=== PATIENT | male | born 1995 | race Caucasian/White ===

== ENCOUNTER 2023-11-06 12:27 | Emergency (ER) | payer OTHER, SELFPAY ==
[2023-11-06 12:33] VITALS: BP 120/80; PULSE 77; O2SAT 99
--- NOTE | 2023-11-06 12:33 | ED.ABDPAIN ---
HPI - Abdominal Pain <Hallie Cerrato PA-C - Last Filed: 11/06/23 15:01> General Chief Complaint: Abdominal Pain Stated Complaint: abd pain Time Seen by Provider: 11/06/23 12:33 History of Present Illness HPI narrative: 28-year-old male was brought down from upstairs where he was with his who is in the labor and delivery department expecting her 4th child today, for chief complaint abdominal pain. He states it is in the mid epigastric area and moves in wave-like motion and comes and goes. It actually began earlier this morning, he is endorsing diarrhea and has had about 10 episodes since yesterday described as clear liquid but with no foul odor no blood or mucus. Last bowel movement was around 430 this morning. He is denying any fever, chills body aches or joint pains, he has had no recent travel or contact with stream water. His and the rest of his 3 children (ages 4, 3, 1) do not have similar symptoms. He has no prior surgical history on the abdomen or any history of any GI issues such as ulcers or GERD. He states no vomiting no nausea per se but he ?burps a lot and it tastes like vomit. ? He still is passing gas but ?can not trust it as he thinks he might have a bowel movement. His last oral intake was 630am this morning which was a bagel only. He took Imodium and Tums at 4:30 a.m.. He is denying any back pain, any radiation of the pain through to the back, no history of any EtOH, no history of NSAID usage, no urinary symptoms. He states lying on his right side makes it feel a little bit better but it does not fully resolve. He is denying any chest pain, difficulty breathing, he has no family history of any GI issues or vascular disease. He is a nonsmoker. Lying on his left side makes it worse. All other systems reviewed and are negative. Review of Systems <Hallie Cerrato PA-C - Last Filed: 11/06/23 15:01> Review of Systems Narrative: All other systems reviewed and are negative. Patient History <Hallie Cerrato PA-C - Last Filed: 11/06/23 15:01> Social History Smoking Status: Never smoker Exam <Hallie Cerrato PA-C - Last Filed: 11/06/23 15:01> Initial Vital Signs Initial Vital Signs: Vital Signs Pulse Rate 77 11/06/23 12:33 Blood Pressure 120/80 11/06/23 12:33 Pulse Oximetry 99 11/06/23 12:33 Vital signs reviewed and are normal. Remained normal throughout his visit. Const Other: Alert and oriented x4, uncomfortable appearing. Nontoxic appearing, normal color, turgor, temperature. [facility] Mouth: oral mucosae normal, lip normal, tongue normal and oropharynx normal Neck Lymphatic: No lymphadenopathy Resp Other: Clear to auscultation throughout, normal expansion equal chest rise and fall. Cardio Other: Regular rate and rhythm. No tachycardia. GI Inspection: normal to inspection, no abdominal wall ecchymosis, non-distended, no incisions, no large pannus and no striae Palpation: soft, No no hepatosplenomegaly, No aortic enlargement, No pulsatile mass and tender (Epigastric point tenderness, right and left upper quadrant tender) Percussion: normal to percussion Auscultation: hypoactive bowel sounds Other: No guarding with compression of the abdomen, Devine's sign is equivocal. No CVA tenderness. <Chio Olea DO - Last Filed: 11/07/23 07:31> Initial Vital Signs Initial Vital Signs: Vital Signs Pulse Rate 77 11/06/23 12:33 Blood Pressure 120/80 11/06/23 12:33 Pulse Oximetry 99 11/06/23 12:33 Course <Hallie Cerrato PA-C - Last Filed: 11/06/23 15:01> Course Course Narrative: CMP CBC and lipase are normal. A CT scan is negative. He was given 1 mg of Dilaudid and overall his pain has improved significantly. No bowel movements as of 1:47 p.m. no new symptoms. Orders Ordered: Discontinued Medications Al Hydrox/Mg Hydrox/Simethicone 20 ml/ Lidocaine HCl 15 ml 0 ml PO NOW ONE Stop: 11/06/23 14:10 Last Admin: 11/06/23 14:28 Dose: 35 ml Documented By: JOSIAH Hydromorphone HCl (Hydromorphone 1 Mg Inj) 1 mg IV NOW ONE Stop: 11/06/23 13:08 Last Admin: 11/06/23 13:29 Dose: 1 mg Documented By: BOB Sodium Chloride (Normal Saline 0.9%) 1,000 mls @ 1,000 mls/hr IV BOLUS PRN PRN Reason: Fluid replacement Last Admin: 11/06/23 14:28 Dose: 1,000 mls/hr Documented By: JOSIAH Ondansetron HCl (Ondansetron 4 Mg Odt) 4 mg PO NOW PRN PRN Reason: Nausea And Vomiting Ondansetron HCl (Ondansetron 4 Mg/2 Ml Inj) 4 mg IV NOW PRN PRN Reason: Nausea And Vomiting Reevaluation(s) Reevaluation #1: Re-evaluated following his CT scan which was read as negative, he was treated with 1 mg Dilaudid and that has helped his pain significantly. He still lying on his right side position of comfort. He is yet to defecate. His respiratory panel is still pending. Unable to provide a urine sample at this point. Vital signs remained normal, no tachycardia, skin signs are also normal. We will bolus him with a L of normal saline. Reevaluation #2: Tolerated GI cocktail without issue. 1 L of normal saline infused. He is pain-free at this time just a little bit of ?indigestion?. Vital Signs Vital signs: Vital Signs - 8 hr 11/06/23 12:33 11/06/23 12:33 11/06/23 12:37 Temperature 97.8 F Pulse Rate 77 75 Respiratory Rate 18 Blood Pressure 120/80 120/80 Pulse Oximetry 99 99 Oxygen Delivery Method Room Air 11/06/23 13:42 11/06/23 14:00 11/06/23 14:30 Temperature Pulse Rate 85 95 H 81 Respiratory Rate Blood Pressure Pulse Oximetry 96 96 98 Oxygen Delivery Method <Chio Olea DO - Last Filed: 11/07/23 07:31> Orders Ordered: Discontinued Medications Al Hydrox/Mg Hydrox/Simethicone 20 ml/ Lidocaine HCl 15 ml 0 ml PO NOW ONE Stop: 11/06/23 14:10 Last Admin: 11/06/23 14:28 Dose: 35 ml Documented By: JOSIAH Hydromorphone HCl (Hydromorphone 1 Mg Inj) 1 mg IV NOW ONE Stop: 11/06/23 13:08 Last Admin: 11/06/23 13:29 Dose: 1 mg Documented By: BOB Sodium Chloride (Normal Saline 0.9%) 1,000 mls @ 1,000 mls/hr IV BOLUS PRN PRN Reason: Fluid replacement Last Admin: 11/06/23 14:28 Dose: 1,000 mls/hr Documented By: JOSIAH Ondansetron HCl (Ondansetron 4 Mg Odt) 4 mg PO NOW PRN PRN Reason: Nausea And Vomiting Ondansetron HCl (Ondansetron 4 Mg/2 Ml Inj) 4 mg IV NOW PRN PRN Reason: Nausea And Vomiting Vital Signs Vital signs: Vital Signs - 8 hr 11/06/23 12:33 11/06/23 12:33 11/06/23 12:37 Temperature 97.8 F Pulse Rate 77 75 Respiratory Rate 18 Blood Pressure 120/80 120/80 Pulse Oximetry 99 99 Oxygen Delivery Method Room Air 11/06/23 13:42 11/06/23 14:00 11/06/23 14:30 Temperature Pulse Rate 85 95 H 81 Respiratory Rate Blood Pressure Pulse Oximetry 96 96 98 Oxygen Delivery Method MDM - Abdominal Pain <Hallie Cerrato PA-C - Last Filed: 11/06/23 15:01> Medical Records Attestation: I reviewed the patient's medical records. Lab Data Lab results narrative: Normal CBC, CMP, lipase. Respiratory panel was positive for entero coronavirus. 11/06/23 12:39 11/06/23 12:39 Labs: Lab Results 11/06/23 11/06/23 Range/Units 12:36 12:39 WBC 7.9 (4.5-11.0) X10^3/uL RBC 5.06 (4.5-5.9) X10^6/uL Hgb 15.0 (13.5-17.5) g/dL Hct 46.0 (41-53) % MCV 90.9 (80-100) fL MCH 29.7 (26-34) PG MCHC 32.6 (30-36) % RDW 13.1 (11.6-14.8) % Plt Count 316 (150-400) X10^3/uL Neut % (Auto) 62.1 (50-75) % Lymph % (Auto) 26.0 (25-40) % [place] % (Auto) 10.1 (3-14) % Eos % (Auto) 1.1 L (2-4) % Baso % (Auto) 0.7 (0-2) % Neut # (Auto) 4900 (2828-6228) /uL Lymph # (Auto) 2100 (9143-1790) /uL [place] # (Auto) 800 (0-900) /uL Eos # (Auto) 100 (0-450) /uL Baso # (Auto) 100 (0-100) /uL Sodium 142 (137-145) mmol/L Potassium 4.2 (3.4-5.1) mmol/L Chloride 106 (98-107) mmol/L Carbon Dioxide 28 (22-32) mmol/L BUN 15 (9-20) mg/dL Creatinine 1.01 (0.66-1.25) mg/dL Estimated GFR > 60 (>60) mL/min BUN/Creatinine Ratio 14.9 (6-22) Glucose 89 (70-100) mg/dL Calcium 9.4 (8.4-10.2) mg/dL Total Bilirubin 0.3 (0.2-1.3) mg/dL AST 33 (17-59) IU/L ALT 32 (<50) IU/L Alkaline Phosphatase 65 (38-126) U/L Total Protein 7.5 (6.3-8.2) g/dL Albumin 4.6 (3.5-5.0) g/dL Globulin 2.9 (1.7-4.1) g/dL Albumin/Globulin Ratio 1.6 (1.0-2.8) Lipase 49 (23-300) U/L Chlamy pneumoniae PCR Not detected (Not Detect) Adenovirus (PCR) Not detected (Not Detect) B.parapertussis DNA PCR Not detected (Not Detecte) Coronavirus OC43 (PCR) Not detected (Not Detect) Coronavirus HKU1 (PCR) Not detected (Not Detect) Coronavirus 229E (PCR) Not detected (Not Detect) SARS-CoV-2 (PCR) Not detected (Not Detecte) Coronavirus NL63 (PCR) Not detected (Not Detect) Human Metapneumovir PCR Not detected (Not Detect) Influenza Type A (PCR) Not detected (Not Detect) Influenza Type B (PCR) Not detected (Not Detect) M. pneumoniae (PCR) Not detected (Not Detect) Parainfluenza 1 (PCR) Not detected (Not Detect) Parainfluenza 2 (PCR) Not detected (Not Detect) Parainfluenza 3 (PCR) Not detected (Not Detect) Parainfluenza 4 (PCR) Not detected (Not Detect) RSV (PCR) Not detected (Not Detect) Entero/Rhino (PCR) Detected H (Not Detect) Imaging Data CT scan - abdomen/pelvis: My Impression: Deferred to Radiologist interpretation. Radiologist's Impression: [address] [address] [address] Scan Report Signed Patient: Mike Dang MR#: [id number] : 1995 Acct:[id number] Age/Sex: 28 / M Date of Service: 11/06/23 Loc: ED Accession Number: [id number] Procedure: CT abdomen pelvis w con Ordering Provider: Hallie Cerrato P.A-C PROCEDURE: CT ABDOMEN PELVIS W CON INDICATIONS: Upper abd pain, epigastric with diarrhea, afebrile TECHNIQUE: After the administration of intravenous contrast, axial sections acquired from the lung bases to the pubic symphysis. Coronal and sagittal reformats were performed. For radiation dose reduction, the following was used: automated exposure control, adjustment of mA and/or kV according to patient size. COMPARISON: None. FINDINGS: Image quality: Diagnostic. Lower Chest: No significant findings. ABDOMEN: Liver: No solid mass. Gallbladder: No radiopaque gallstones or wall thickening. Biliary ducts: No biliary dilation. Pancreas: No ductal dilation. Spleen: Size is within normal limits. Adrenal Glands: No adrenal nodules. Kidneys and Ureters: No hydronephrosis. No solid mass. No complex renal cystic lesion which requires follow up. Stomach and Bowel: Normal colonic caliber, without significant wall thickening. Peritoneum: No abnormal intraperitoneal fluid. No free air. Ventral Wall: No significant ventral hernia. Abdominal Nodes: No retroperitoneal or mesenteric adenopathy by size criteria. Vessels: Aorta and inferior vena cava are normal in size. PELVIS: Pelvic Organs: Unremarkable. Bladder: No bladder wall thickening, accounting for underdistention. Pelvic Nodes: No enlarged lymph nodes. Miscellaneous: No inguinal hernias are seen. Bones: No aggressive osseous abnormality. IMPRESSION: Normal for age, source of current symptoms is not seen. A normal or abnormal appendix could not be located. No secondary CT evidence of acute appendicitis is found. Dictated by: Ravi Stephens M.D. on 11/06/2023 at 13:23 Approved by: Ravi Stephens M.D. on 11/06/2023 at 13:25 Chest x-ray: My Impression: Single view chest. No acute cardiopulmonary process. Radiologist's Impression: PROCEDURE: XR CHEST 1V INDICATIONS: abdominal pain TECHNIQUE: One view of the chest was acquired. COMPARISON: None. FINDINGS: Surgical changes and devices: None. Lungs and pleura: Lungs are clear. No pleural effusions or pneumothorax. Mediastinum: Mediastinal contours appear normal. Heart size is normal. Bones and chest wall: No suspicious bony lesions. Overlying soft tissues appear unremarkable. Multiple air-filled loops of distended bowel noted in the upper abdomen. IMPRESSION: No acute cardiopulmonary abnormality is seen. Multiple air-filled loops of distended bowel in the upper abdomen. Dictated by: Christiano Joy M.D. on 11/06/2023 at 14:05 Approved by: Christiano Joy M.D. on 11/06/2023 at 14:06 ECG Data Interpretation: Twelve lead EKG shows ventricular rate of 64 beats per minute, normal ME interval, no PE or T-wave abnormalities, no ST segment changes, normal axis, normal sinus rhythm. [facility] Narrative Medical decision making narrative: No clinical findings on examination to suggest an acute surgical abdomen, his CT abdomen and pelvis are normal. Chest x-ray normal. His vital signs have remained normal throughout, afebrile, no tachycardia. Normal sinus rhythm. IV hydration, pain was treated with Dilaudid IV, GI cocktail p.o., respiratory panel is positive for entero rhino virus. He has no upper respiratory symptoms. No cough. Differential includes gastritis, GERD, gastroenteritis, he is yet to have a bowel movement in the ED, he self-reported 10 episodes of clear liquidy stools without blood or mucus. He did take Imodium at 4:30 a.m. this morning however. <Chio Olea, DO - Last Filed: 11/07/23 07:31> Lab Data Labs: Lab Results 11/06/23 11/06/23 Range/Units 12:36 12:39 WBC 7.9 (4.5-11.0) X10^3/uL RBC 5.06 (4.5-5.9) X10^6/uL Hgb 15.0 (13.5-17.5) g/dL Hct 46.0 (41-53) % MCV 90.9 (80-100) fL MCH 29.7 (26-34) PG MCHC 32.6 (30-36) % RDW 13.1 (11.6-14.8) % Plt Count 316 (150-400) X10^3/uL Neut % (Auto) 62.1 (50-75) % Lymph % (Auto) 26.0 (25-40) % [place] % (Auto) 10.1 (3-14) % Eos % (Auto) 1.1 L (2-4) % Baso % (Auto) 0.7 (0-2) % Neut # (Auto) 4900 (3558-8838) /uL Lymph # (Auto) 2100 (8839-3482) /uL [place] # (Auto) 800 (0-900) /uL Eos # (Auto) 100 (0-450) /uL Baso # (Auto) 100 (0-100) /uL Sodium 142 (137-145) mmol/L Potassium 4.2 (3.4-5.1) mmol/L Chloride 106 (98-107) mmol/L Carbon Dioxide 28 (22-32) mmol/L BUN 15 (9-20) mg/dL Creatinine 1.01 (0.66-1.25) mg/dL Estimated GFR > 60 (>60) mL/min BUN/Creatinine Ratio 14.9 (6-22) Glucose 89 (70-100) mg/dL Calcium 9.4 (8.4-10.2) mg/dL Total Bilirubin 0.3 (0.2-1.3) mg/dL AST 33 (17-59) IU/L ALT 32 (<50) IU/L Alkaline Phosphatase 65 (38-126) U/L Total Protein 7.5 (6.3-8.2) g/dL Albumin 4.6 (3.5-5.0) g/dL Globulin 2.9 (1.7-4.1) g/dL Albumin/Globulin Ratio 1.6 (1.0-2.8) Lipase 49 (23-300) U/L Chlamy pneumoniae PCR Not detected (Not Detect) Adenovirus (PCR) Not detected (Not Detect) B.parapertussis DNA PCR Not detected (Not Detecte) Coronavirus OC43 (PCR) Not detected (Not Detect) Coronavirus HKU1 (PCR) Not detected (Not Detect) Coronavirus 229E (PCR) Not detected (Not Detect) SARS-CoV-2 (PCR) Not detected (Not Detecte) Coronavirus NL63 (PCR) Not detected (Not Detect) Human Metapneumovir PCR Not detected (Not Detect) Influenza Type A (PCR) Not detected (Not Detect) Influenza Type B (PCR) Not detected (Not Detect) M. pneumoniae (PCR) Not detected (Not Detect) Parainfluenza 1 (PCR) Not detected (Not Detect) Parainfluenza 2 (PCR) Not detected (Not Detect) Parainfluenza 3 (PCR) Not detected (Not Detect) Parainfluenza 4 (PCR) Not detected (Not Detect) RSV (PCR) Not detected (Not Detect) Entero/Rhino (PCR) Detected H (Not Detect) Discharge Plan Departure Patient Disposition: Home Clinical Impression: Abdominal pain Qualifiers: Abdominal location: upper abdomen, unspecified Qualified Code(s): R10.10 - Upper abdominal pain, unspecified Instructions: DI for Abdominal Pain-Adult Activity Restrictions/Additional Instructions: Your CT scan today was normal, your lab work was also normal. Regarding her diarrhea you are encouraged to do clear liquids for the next 24-48 hours, advance your diet as tolerated to bland foods including bread, plain rice, applesauce, toast, please follow-up with your primary care if your symptoms persist, if they worsen please return to the emergency department. You may also want to consider adding omeprazole which is also known as brand-name Prilosec 20 mg daily about a half an hour before food, try to hold off on any additional Imodium as he want to encourage emptying. Please hydrate, this includes broth, popsicles, Gatorade. Seek medical attention if you have recurrent pain, any new symptoms, develop any fever, lightheadedness, weakness or persistent diarrhea or any other worrisome symptoms. Referrals: ProviderAvani [Primary Care Provider] - Stand Alone Forms: Patient Portal/API ED Sign-out <Chio Olea DO - Last Filed: 11/07/23 07:31> Cosign ED Attending Cosvivianaature Attestation: I was available for consultation.
[2023-11-06 12:37] VITALS: BP 120/80; PULSE 75; RESP 18; TEMP 36.6; O2SAT 99; BMI 30.9
[2023-11-06 12:45] LABS: Add Manual Diff / Slide Review NO; Basophils Absolute Auto 100 /uL (0-100); Basophils Percent Auto 0.7 % (0-2); Eosinophils Absolute Auto 100 /uL (0-450); Eosinophils Percent Auto 1.1 % (2-4); Lymphocytes Absolute Auto 2100 /uL (1100-4500); Mean Corpuscular HGB Conc 32.6 % (30-36); Mean Corpuscular Hemoglobin 29.7 PG (26-34); Mean Corpuscular Volume 90.9 fL (80-100); Monocytes Absolute Auto 800 /uL (0-900); Monocytes Percent Auto 10.1 % (3-14); Neutrophils Absolute Auto 4900 /uL (1500-7000); Neutrophils Percent Auto 62.1 % (50-75); Platelet Count 316 X10^3/uL (150-400); Red Blood Cell Count 5.06 X10^6/uL (4.5-5.9); Red Cell Distribution Width 13.1 % (11.6-14.8); White Blood Cell Count 7.9 X10^3/uL (4.5-11.0)
--- NOTE | 2023-11-06 12:47 | DI.CT.S_ITS ---
PROCEDURE: CT ABDOMEN PELVIS W CON INDICATIONS: Upper abd pain, epigastric with diarrhea, afebrile TECHNIQUE: After the administration of intravenous contrast, axial sections acquired from the lung bases to the pubic symphysis. Coronal and sagittal reformats were performed. For radiation dose reduction, the following was used: automated exposure control, adjustment of mA and/or kV according to patient size. COMPARISON: None. FINDINGS: Image quality: Diagnostic. Lower Chest: No significant findings. ABDOMEN: Liver: No solid mass. Gallbladder: No radiopaque gallstones or wall thickening. Biliary ducts: No biliary dilation. Pancreas: No ductal dilation. Spleen: Size is within normal limits. Adrenal Glands: No adrenal nodules. Kidneys and Ureters: No hydronephrosis. No solid mass. No complex renal cystic lesion which requires follow up. Stomach and Bowel: Normal colonic caliber, without significant wall thickening. Peritoneum: No abnormal intraperitoneal fluid. No free air. Ventral Wall: No significant ventral hernia. Abdominal Nodes: No retroperitoneal or mesenteric adenopathy by size criteria. Vessels: Aorta and inferior vena cava are normal in size. PELVIS: Pelvic Organs: Unremarkable. Bladder: No bladder wall thickening, accounting for underdistention. Pelvic Nodes: No enlarged lymph nodes. Miscellaneous: No inguinal hernias are seen. Bones: No aggressive osseous abnormality. IMPRESSION: Normal for age, source of current symptoms is not seen. A normal or abnormal appendix could not be located. No secondary CT evidence of acute appendicitis is found. Dictated by: Ravi Stephens M.D. on 11/06/2023 at 13:23 Approved by: Ravi Stephens M.D. on 11/06/2023 at 13:25
[2023-11-06 13:01] LABS: Alanine Aminotransferase 32 IU/L (<50); Albumin 4.6 g/dL (3.5-5.0); Albumin Globulin Ratio 1.6 (1.0-2.8); Alkaline Phosphatase 65 U/L (38-126); Aspartate Aminotransferase 33 IU/L (17-59); BUN Creatinine Ratio 14.9 (6-22); Bilirubin Total 0.3 mg/dL (0.2-1.3); Blood Urea Nitrogen 15 mg/dL (9-20); Calcium 9.4 mg/dL (8.4-10.2); Carbon Dioxide 28 mmol/L (22-32); Chloride 106 mmol/L (98-107); Estimated Glomerular Filt Rate > 60 mL/min (>60); Globulin 2.9 g/dL (1.7-4.1); Glucose 89 mg/dL (70-100); HEMOLYSIS < 15 (0-50); Lipase 49 U/L (23-300); Potassium 4.2 mmol/L (3.4-5.1); Sodium 142 mmol/L (137-145); Total Protein 7.5 g/dL (6.3-8.2)
[2023-11-06] MEDS: HYDROMORPHONE 1 MG INJ IV (13:29)
[2023-11-06 13:42] VITALS: PULSE 85; O2SAT 96
--- NOTE | 2023-11-06 13:51 | DI.RAD.S_ITS ---
PROCEDURE: XR CHEST 1V INDICATIONS: abdominal pain TECHNIQUE: One view of the chest was acquired. COMPARISON: None. FINDINGS: Surgical changes and devices: None. Lungs and pleura: Lungs are clear. No pleural effusions or pneumothorax. Mediastinum: Mediastinal contours appear normal. Heart size is normal. Bones and chest wall: No suspicious bony lesions. Overlying soft tissues appear unremarkable. Multiple air-filled loops of distended bowel noted in the upper abdomen. IMPRESSION: No acute cardiopulmonary abnormality is seen. Multiple air-filled loops of distended bowel in the upper abdomen. Dictated by: Christiano Joy M.D. on 11/06/2023 at 14:05 Approved by: Christiano Joy M.D. on 11/06/2023 at 14:06
[2023-11-06 14:00] VITALS: PULSE 95; O2SAT 96
[2023-11-06] MEDS: SODIUM CHLORIDE 0.9% 1,000 ML 1000 ML IV (14:28)
[2023-11-06] MEDS: MAG HYDROX/ALUMINUM/SIMETH SUS 20 ML, LIDOCAINE VISCOUS 2% 15 ML PO (14:28)
[2023-11-06 14:30] VITALS: PULSE 81; O2SAT 98
[2023-11-06 14:47] LABS: Adenovirus Not Detected (Not Detect); B. parapertussis Not Detected (Not Detecte); Bordetella pertussis Not Detected (Not Detect); Chlamydophila pneumoniae Not Detected (Not Detect); Coronavirus 229E Not Detected (Not Detect); Coronavirus HKU1 Not Detected (Not Detect); Coronavirus NL 63 Not Detected (Not Detect); Coronavirus OC43 Not Detected (Not Detect); Human Metapneumovirus Not Detected (Not Detect); Human Rhinovirus/Enterovirus Detected (Not Detect); Influenza A Not Detected (Not Detect); Influenza B Not Detected (Not Detect); Mycoplasma pneumoniae Not Detected (Not Detect); Parainfluenza Virus 1 Not Detected (Not Detect); Parainfluenza Virus 2 Not Detected (Not Detect); Parainfluenza Virus 3 Not Detected (Not Detect); Parainfluenza Virus 4 Not Detected (Not Detect); Respiratory Syncytial Virus Not Detected (Not Detect); SARS- CoV-2 Not Detected (Not Detecte)
[2023-11-06 15:00] VITALS: PULSE 67; O2SAT 99
== END 2023-11-06 15:22 | disposition home or self-care (01) ==
PROVIDERS: Emergency Provider Physician Assistant Medical
DX: R10.10 Upper abdominal pain, unspecified (principal); B34.8 Other viral infections of unspecified site; Z20.822 Contact with and (suspected) exposure to COVID-19
CPT/HCPCS: 36415; 71045; 74177; 80053; 83690; 85025; 87633; 93005; 96361; 96374; 99284; J1170; Q9967

== ENCOUNTER → 2024-05-26 12:39 | Outpatient (CLI) | payer OTHER, SELFPAY ==
[2024-05-26 14:12] LABS: Semen Sperm Prescence Post-Vas Absent (ABSENT)
== END ==
PROVIDERS: Referring Provider Urology; Visit Provider Urology
DX: Z98.52 Vasectomy status (principal)
CPT/HCPCS: 89321

== ENCOUNTER → 2025-03-29 11:56 | Outpatient (CLI) | payer OTHER, SELFPAY ==
--- NOTE | 2025-03-29 11:59 | DI.RAD.S_ITS ---
PROCEDURE: FL JOINT INJECTION LARGE RT INDICATIONS: Pain in right shoulder COMPARISON: None. TECHNIQUE: The indications, alternatives, benefits, risks, and complications of the procedure were explained to the patient. Written informed consent was obtained and placed in the chart. The patient was placed in an appropriate position on the fluoroscopy table, and a site was chosen for percutaneous access under fluoroscopic guidance. The site was prepped and draped in a sterile fashion. Local anesthetic was administered using a 1% lidocaine solution. A hypodermic or spinal needle was then used to access the symptomatic joint. Intra-articular location of the needle tip was confirmed by injecting a small amount of contrast, followed by steroid administration. The needle was then withdrawn, and a bandage applied to the puncture site. FINDINGS: Joint injected: Right shoulder Medications injected: 1 mL of 40 mg/mL Kenalog and 3 mL 0.5% Ropivacaine mixture. Patient's pain before injection: 4 out of 10. Patient's pain after injection: 0 out of 10. Complications: None. IMPRESSION: Successful fluoroscopically guided administration of steroid and anaesthetic solution into the right shoulder joint. Dictated by: Lonnie Bowman M.D. on 03/29/2025 at 16:51 Approved by: Lonnie Bowman M.D. on 03/29/2025 at 16:52
[2025-03-29] MEDS: LIDOCAINE 1% 20 ML INJ (12:54)
[2025-03-29] MEDS: TRIAMCINOLONE 40 MG/ML VIAL INTRA-ARTI (12:55)
== END ==
PROVIDERS: Referring Provider Student in an Organized Health Care Education/Training Program; Visit Provider Student in an Organized Health Care Education/Training Program
DX: M25.511 Pain in right shoulder (principal)
CPT/HCPCS: 20610; 77002; Q9967